=== PATIENT | female | born 1995 | race Caucasian/White ===

== ENCOUNTER 2017-06-21 08:16 | Emergency (ER) | payer BC, OTHER ==
[2017-06-21 08:22] VITALS: RESP 18
[2017-06-21] MEDS ORDERED: NS 1,000 ML IV ONE (08:29)
[2017-06-21] MEDS ORDERED: ONDANSETRON 4 MG/2 ML VIAL IVP ONE (08:29)
--- NOTE | 2017-06-21 08:34 | EDPHY ---
H & P Stated Complaint: cough/chills Time Seen by Provider: 06/21/17 08:22 HPI/ROS: CHIEF COMPLAINT: Flu-like symptoms, nausea post alcohol use HISTORY OF PRESENT ILLNESS: 22-year-old immunocompetent female, no influenza vaccination, arrives via private vehicle stating that she had been drinking heavy amounts of alcohol yesterday (' Day) awoke this morning awoke feeling nausea, subjective sensation of volume depletion, flu-like symptoms, myalgias, sore throat, non thunderclap headache, nonproductive cough. No vomiting. No abdominal pain. No chest pain. No dyspnea. No nuchal rigidity. No nuchal rigidity. No back or flank pain. No urinary abnormality. PRIMARY CARE PROVIDER: [facility] REVIEW OF SYSTEMS: A ten point review of systems was performed and is negative with the exception of the items mentioned in the HPI PAST MEDICAL & SURGICAL HISTORY: Immunocompetent. No influenza vaccination. SOCIAL HISTORY:Positive for alcohol use history PHYSICAL EXAM (Prior to examination, patient consented to physical exam, hands were washed and my usual and customary physical exam procedures followed) 1) GENERAL: Well-developed, well-nourished, alert and oriented. Appears nontoxic. 2) HEAD: Normocephalic, atraumatic 3) HEENT: Pupils equal, round, reactive to light bilaterally. Sclera anicteric. Nasopharynx: Dry mucous membranes., oropharynx, clear, no lesions, no tonsillar enlargement or exudate. No trismus no drooling Ears bilaterally with normal tympanic membranes. 4) NECK: Full range of motion, no meningeal signs. No adenopathy. 5) LUNGS: Clear auscultation bilaterally, no wheezes, no rhonchi, no retractions. 6) HEART: Regular rate and rhythm, no murmur, no heave, no gallop. 7) ABDOMEN: No guarding, no rebound, no focal tenderness, negative McBurney's, negative Rizvi's, negative Rovsing's, negative peritoneal sign, 8) MUSCULOSKELETAL: Moving all extremities, no focal areas of tenderness, no obvious trauma. No peripheral edema or discoloration. 9) BACK: No CVA tenderness, no midline vertebral tenderness, no fluctuance, no step-off, no obvious trauma, no visual or palpable abnormality. 10) SKIN: No rash, no petechiae. 11) Psychiatric: Patient is oriented X 3, there is no agitation. DIFFERENTIAL DIAGNOSIS: In no particular include but limited to influenza, viral syndrome, post alcohol use nausea - Personal History LMP (Females 10-55): Now Current Tetanus/Diphtheria Vaccine: Yes - Medical/Surgical History Hx Asthma: No Hx Chronic Respiratory Disease: No Hx Diabetes: No Hx Cardiac Disease: No Hx Renal Disease: No Hx Cirrhosis: No Hx Alcoholism: No Hx HIV/AIDS: No Hx Splenectomy or Spleen Trauma: No Other PMH: pt denies - Social History Smoking Status: Never smoked Constitutional: Initial Vital Signs Temperature (C) 36.4 C 06/21/17 08:19 Heart Rate 79 06/21/17 08:19 Respiratory Rate 18 06/21/17 08:19 Blood Pressure 134/64 H 06/21/17 08:19 O2 Sat (%) 100 06/21/17 08:19 O2 Delivery Mode Room Air Allergies/Adverse Reactions: No Known Allergies Allergy (Verified 06/21/17 08:19) Home Medications: Medication Instructions Recorded NK [No Known Home Meds] 06/21/17 Medical Decision Making ED Course/Re-evaluation: 8:31 a.m.: Patient overall appears nontoxic. We discussed that her symptoms may be secondary to influenza. Discussed that I do not think that influenza testing is currently definitively indicated as this would more than likely not change the plan of supportive care, rest, hydration, antipyretic therapy . Discussed that I think that antiviral therapy benefits more than likely do not outweigh the risks in this otherwise healthy 22-year-old female with no comorbidities. Lungs are clear bilaterally, maintaining normal saturations. I do not think that chest x-ray is indicated therefore. She is complaining of nausea without vomiting and without abdominal pain either subjectively or objectively. She thinks she would feel improvement in symptoms with IV hydration which has been ordered as well as IV antiemetic. Will hold on blood work at this time as I think that it is unlikely that serum studies would change the prognostic plan 10:15 a.m.: Re-evaluation after IV hydration. She is feeling improvement. She does note continued mild headache. No nuchal rigidity. Doubt meningitis. Plan will be discharge home, recommend rest, Tylenol, Motrin, given a school note, usual and customary return precautions provided. Care of patient under supervision of secondary supervising physician Dr Berry Gunn. - Data Points Medications Given: Discontinued Medications Sodium Chloride (Ns) 1,000 mls @ 0 mls/hr IV ONCE ONE PRN Reason: Wide Open Stop: 06/21/17 08:30 Last Admin: 06/21/17 08:40 Dose: 1,000 mls Ondansetron HCl (Zofran) 4 mg IVP EDNOW ONE Stop: 06/21/17 08:30 Last Admin: 06/21/17 08:40 Dose: 4 mg Departure - Departure Disposition: Home, Routine, Self-Care Clinical Impression: Nausea alone, Influenza-like illness, Volume depletion Condition: Good Instructions: Influenza (ED), Acute Nausea and Vomiting (ED) Additional Instructions: Return to the ER if you develop neck stiffness, if you are unable to keep food or fluid down or any other symptoms that concern you. Adult Pain & Fever Control: We recommend Acetaminophen (Tylenol) and Ibuprofen (Motrin,Advil) for pain and fever control. When fever is high or pain severe, both drugs can be used at the same time, but at different intervals. Please note the time differences. Your dose is: Acetaminophen 650mg every 4 to 6 hours Ibuprofen 600mg every 6 hours with food OR Note: do not take Acetaminophen with Hydrocodone (Vicodin, Lortab) or Oycodone (Percocet). These medications also contain Acetaminophen. No more than 3000mg of Acetaminophen should be taken in 24 hours (for an adult). Referrals: [facility] [Clinic] - 1-2 days without fail Stand Alone Forms: School Excuse
[2017-06-21 11:03] VITALS: BP 101/51; PULSE 75; TEMP 98.1; O2SAT 99
== END 2017-06-21 11:03 | disposition home or self-care (01) ==
DX: J11.1 Influenza due to unidentified influenza virus with other respiratory manifestations (principal); E86.9 Volume depletion, unspecified
CPT/HCPCS: 96374; J2405